=== PATIENT | male | born 1945 | race Caucasian/White ===

== ENCOUNTER → 2017-09-25 | Outpatient (CLI) | payer OTHER ==
[~2017-09-25] MED LIST: AMBIEN 5 MG TABL5 M1 PO; BLOOD PRESSURE PO; HIGH CHOLESTEROL MED PO
== END ==
LOC: ULTRA 10:04
DX: I70.90 Unspecified atherosclerosis (principal); R55 Syncope and collapse

== ENCOUNTER → 2017-09-25 | Outpatient (CLI) | payer OTHER | LOC: CAT | DX: Z13.6 Encounter for screening for cardiovascular disorders (principal) ==

== ENCOUNTER → 2018-10-18 | Outpatient (CLI) | payer OTHER | LOC: CAT 09:00 | DX: Z13.6 Encounter for screening for cardiovascular disorders (principal); Z82.49 Family history of ischemic heart disease and other diseases of the circulatory system ==

== ENCOUNTER → 2018-10-18 | Outpatient (CLI) | payer OTHER | LOC: RAD 08:59 | DX: M25.561 Pain in right knee (principal); M25.562 Pain in left knee ==

== ENCOUNTER → 2019-07-15 | Outpatient (CLI) | payer OTHER | LOC: RAD 09:28 | DX: J40 Bronchitis, not specified as acute or chronic (principal) ==